=== PATIENT | female | born 1975 | race Caucasian/White ===

== ENCOUNTER 2016-06-24 17:05 | Emergency (ER) | payer SELFPAY ==
[~2016-06-24] VITALS: Ht 175.3 cm; Wt 90.7 kg
[~2016-06-24 17:05] MED LIST: DIAZ5TAB PO; HYDR-971 PO; IBUP800T PO; ONDA4TAB10 SL
[2016-06-24] MEDS ORDERED: IV NORMAL SALINE 1,000ML 1,000 ML IV ONE (17:30)
[2016-06-24] MEDS ORDERED: ONDANSETRON PF 4 MG/2 ML VIAL. IV ONE ×2 (17:45→19:30)
[2016-06-24] MEDS ORDERED: KETOROLAC 30 MG/ML VIAL. IV ONE (17:45)
--- NOTE | 2016-06-24 17:49 | ED.ADGEN ---
Past History Past Medical History: No Pertinent History Additional Past Medical Histor: kidney stone 10 years ago that required lithotripsy Past Surgical History: Hysterectomy Alcohol Use: None Drug Use: None Adult General Chief Complaint Chief Complaint R flank pain HPI HPI Patient is a 40 year old female who presents with acute onset right flank pain that started 2 hours ago. Patient has known history of renal stones, states she was having mild dysuria prior to the pain starting. She denies any fevers, she' s had vomiting that is nonbloody and nonbilious. Patient has follow-up scheduled with urology on the of this month to have procedure performed to break up the stones. This is the third episode the patient's had since May. At that time she had a CT that did not show an obstructing stone that showed multiple intrarenal stones bilaterally. When the pain started she noted hematuria. Review of Systems Review of Systems Constitutional: Denies fever or chills [] Eyes: Denies change in visual acuity, redness, or eye pain [] HENT: Denies nasal congestion or sore throat [] Respiratory: Denies cough or shortness of breath [] Cardiovascular: Nice chest pain GI: Per history of present illness : Per history of present illness Musculoskeletal: Denies joint pain [] Integument: Denies rash or skin lesions [] Neurologic: Denies headache, focal weakness or sensory changes [] Current Medications Current Medications Current Medications Medications (Trade) Dose Ordered Sig/Angus Start Time Stop Time Status Last Admin Dose Admin Ketorolac Tromethamine 30 mg 30 mg 1X ONCE 06/24/16 17:30 06/24/16 17:31 UNV Morphine Sulfate (Morphine 5mg Syringe) 5 mg 1X ONCE 06/24/16 17:30 06/24/16 17:31 UNV Ondansetron HCl (Zofran) 4 mg 1X ONCE 06/24/16 17:30 06/24/16 17:31 UNV Sodium Chloride (Iv Sodium Chloride 0.9% 1,000ml) 1,000 ml @ 1,000 mls/hr 1X ONCE 06/24/16 17:30 06/24/16 18:29 UNV Allergies Allergies Allergies Coded Allergies Type Severity Reaction Last Updated Verified No Known Drug Allergies 05/27/16 No Physical Exam Physical Exam Constitutional: Well developed, well nourished, alert distress with vomiting, appears uncomfortable, moving on the bed HENT: Normocephalic, atraumatic, bilateral external ears normal, oropharynx moist, no oral exudates, nose normal. [] Eyes: PERRLA, EOMI, conjunctiva normal, no discharge. [] Neck: Normal range of motion, no tenderness, supple, no stridor. [] Cardiovascular:Heart rate regular with regular rhythm, no murmur [] Lungs & Thorax: Bilateral breath sounds clear to auscultation [] Abdomen: soft, no tenderness, no masses, no pulsatile masses. [] Skin: Warm, dry, no erythema, no rash. [] Back: tender to percussion R flank, no external signs of trauma Extremities: No tenderness, no cyanosis, no clubbing, ROM intact, no edema. [] Neurologic: Alert and oriented X 3, normal motor function, normal sensory function, no focal deficits noted. [] Psychologic: Affect normal, judgement normal, mood normal. [] EKG EKG [] Radiology/Procedures Radiology/Procedures Reviewed the CT scan performed in May[] Course & Med Decision Making Course & Med Decision Making Pertinent Labs and Imaging studies reviewed. (See chart for details) IV established, pt given IV morphine, zofran, and toradol. urine sent and poc chemistry ordered. Care transferred to Dr. Enciso at 1800 pending labwork, ua, and reassessment of patient. Final Impression Final Impression Urolithiasis Hematuria Nausea with vomiting.[] Problems: Dragon Disclaimer Dragon Disclaimer This electronic medical record was generated, in whole or in part, using a voice recognition dictation system. RODRIGO CHRISTINA MD Jun 24, 2016 17:49
[2016-06-24] MEDS: MORPHINE SULFATE 5 MG/ML SYRINGE. IV ONE ×2 (18:07→18:44)
[2016-06-24 18:13] LABS: CLARITY,URINE HAZY; COLOR,URINE YELLOW; GLUCOSE,URINE NEG (NEG)
[2016-06-24 18:14] LABS: BILIRUBIN,URINE NEG (NEG); UROBILINOGEN,URINE 0.2 mg/dL (0.2 mg/dL)
[2016-06-24 18:15] LABS: NITRITE,URINE NEG (NEG)
[2016-06-24 18:17] LABS: BACTERIA,URINE 0 /HPF (0-FEW); RBC,URINE >40 /HPF (0-2); SQUAMOUS EPITHELIAL CELL,UR MOD /LPF; WBC,URINE 0 /HPF (0-4)
[2016-06-24 18:52] VITALS: BP 132/74
--- NOTE | 2016-06-24 19:08 | ACF ---
Admission Criteria Forms RENAL COLIC AND KIDNEY STONES Clinical Indications for Admission to Inpatient Care ( Place 'X' for any and all applicable criteria): Admission is indicated for ANY ONE of the following (1)(2)(3)(4): [ X]I. Inpatient admission required rather than observation care (Also use Renal Colic and Kidney Stones: Observation Care Criteria as appropriate) because of ANY ONE of the following: [ ]a) Severe pain requiring acute inpatient management [ ]b) Urinary tract infection identified [ ]c) Vomiting that is severe or persistent [ ]d) IV fluid required rather than oral rehydration to replace significant ongoing (eg, for greater than 24 hours) losses (greater than 200 mL/hr or 3 L/m2 per day) [ ]e) Percutaneous or open drainage (eg, abscess, biliary tract) procedures [ X]f) Other condition, treatment or monitoring requiring inpatient admission [ ]II. Impending acute renal failure [ ]III. Bilateral obstruction [ ]IV. Single kidney with obstruction [ ]V. Transplanted kidney with obstruction [ ]. Possible open surgical procedure needed (eg, pyonephrosis, stone removal not amendable to other means) [ ]VII. Hemodynamic instability Extended stay beyond goal length of stay may be needed for(2)(3)(31): [ ]a) Failed initial stone removal (32) [ ]b) Pyonephrosis [ ]c) Obstructive uropathy with urinary tract infection [ ]d) Procedure complications [ ]e) Comorbidities (22) The original [facility] content created by [email or web address] has been revised. The portions of the content which have been revised are identified through the use of italic text or in bold, and [facility] has neither reviewed nor approved the modified material. All other unmodified content is copyright [facility]. Please see references footnoted in the original [facility] [employer] edition 2016 Admission Criteria Met?: Yes LIDYA CRISTINA Jun 24, 2016 19:08
[2016-06-24 19:11] LABS: BASO % 1 % (0-3); EOS # 0.3 x10^3/uL (0.0-0.7); EOS % 4 % (0-3); HEMATOCRIT 41.4 % (36.0-47.0); HEMOGLOBIN 13.6 g/dL (12.0-15.5); LYMPH # 2.2 x10^3/uL (1.0-4.8); LYMPH % 31 % (24-48); MEAN CORPUSCULAR HEMOGLOBIN 32 pg (25-35); MEAN CORPUSCULAR HGB CONC 33 g/dL (31-37); MEAN CORPUSCULAR VOLUME 97 fL (79-100); MONO # 0.6 x10^3/uL (0.0-1.1); MONO % 9 % (0-9); NEUT # 3.9 x10^3uL (1.8-7.7); NEUT % 56 % (31-73); PLATELET COUNT 233 x10^3/uL (140-400); RED BLOOD COUNT 4.26 x10^6/uL (3.50-5.40); RED CELL DISTRIBUTION WIDTH 13.2 % (11.5-14.5)
[2016-06-24 19:28] LABS: ALBUMIN 4.1 g/dL (3.4-5.0); ALBUMIN/GLOBULIN RATIO 1.1 (1.0-1.7); CREATININE 0.7 mg/dL (0.6-1.0); GFR 92.7; POTASSIUM 4.2 mmol/L (3.5-5.1); TOTAL BILIRUBIN 0.3 mg/dL (0.2-1.0); TOTAL PROTEIN 7.7 g/dL (6.4-8.2)
[2016-06-24] MEDS ORDERED: IBUPROFEN 600 MG TABLET. PO ONE (19:45)
[2016-06-24] MEDS ORDERED: FENTANYL PF 100 MCG/2 ML VIAL. IV ONE (20:00)
== END 2016-06-24 19:31 | disposition left against medical advice (07) ==
LOC: ER 17:05
DX: N20.9 Urinary calculus, unspecified (principal); R31.9 Hematuria, unspecified; R11.2 Nausea with vomiting, unspecified; Z87.442 Personal history of urinary calculi
CPT/HCPCS: 36415; 80053; 81001; 85027; 85610; 96361; 96374; 96375; 96376; 99284; J1885; J2270; J2405; J7030